=== PATIENT | female | born 1995 | race Hispanic/Latino ===

== ENCOUNTER 2018-12-02 14:06 | Emergency (ER) | payer OTHER ==
[~2018-12-02] VITALS: Ht 157.5 cm; Wt 63.6 kg
[2018-12-02 17:40] LABS: BASO % 0.2 % (0.0-1.0); EOS # 0.1 10^3/uL (0.0-0.50); EOS % 0.4 % (0.0-3.0); HEMATOCRIT 37.4 % (36.0-47.0); HEMOGLOBIN 12.3 g/dl (12.0-15.5); LYMPH # 1.8 10^3/uL (1.5-6.5); LYMPH % 16.2 % (24.0-44.0); MEAN CORPUSCULAR HEMOGLOBIN 28.5 pg (27.0-33.0); MEAN CORPUSCULAR HGB CONC 32.9 g/dl (32.0-36.5); MEAN CORPUSCULAR VOLUME 86.8 fl (80.0-96.0); MONO # 0.5 10^3/uL (0.0-0.8); NEUTROPHILS # 8.8 10^3/uL (1.8-7.7); NEUTROPHILS % 78.8 % (36.0-66.0); PLATELET COUNT, AUTOMATED 197 10^3/uL (150-450); RED BLOOD COUNT 4.31 10^6/uL (4.00-5.40); WHITE BLOOD COUNT 11.2 10^3/uL (4.0-10.0)
[2018-12-02 18:07] LABS: ALBUMIN 3.4 GM/DL (3.2-5.2); ALT/SGPT 17 U/L (12-78); BILIRUBIN,DIRECT < 0.1 MG/DL (0.0-0.2); BILIRUBIN,TOTAL 0.2 MG/DL (0.2-1.0); BLOOD UREA NITROGEN 7 MG/DL (7-18); CALCIUM LEVEL 8.5 MG/DL (8.5-10.1); CARBON DIOXIDE LEVEL 24 MEQ/L (21-32); CHLORIDE LEVEL 104 MEQ/L (98-107); CREATININE FOR GFR 0.45 MG/DL (0.55-1.30); GLOMERULAR FILTRATION RATE > 60.0 (>60); GLUCOSE, FASTING 102 MG/DL (70-100); POTASSIUM SERUM 5.1 MEQ/L (3.5-5.1); SODIUM LEVEL 135 MEQ/L (136-145); TOTAL PROTEIN 7.3 GM/DL (6.4-8.2)
[2018-12-02 18:34] VITALS: BP 112/58
--- NOTE | 2018-12-02 20:43 | REP ---
FIRST TRIMESTER ULTRASOUND: Real-time sonographic evaluation of the gravid uterus is performed. There is a single living intrauterine gestation with estimated gestational age of 14 weeks based on today's ultrasound measurements, EDC 06/02/2019. heart rate is 150 beats per minute. [place]-rump length is 82 mm. BPD 25 mm. Abdominal circumference is 73 mm. There is no subchronic hemorrhage. Placenta is posterior with no previa. No maternal adnexal region abnormalities are seen. Electronically Signed by Kadeem Sigala MD 12/04/2018 01:28 P
== END 2018-12-02 18:38 | disposition home or self-care (01) ==
LOC: M ED 14:06
DX: O26.892 Other specified pregnancy related conditions, second trimester (principal); R10.30 Lower abdominal pain, unspecified; Z3A.14 14 weeks gestation of pregnancy

== ENCOUNTER 2019-06-09 04:17 | Inpatient (IN) | payer OTHER ==
[~2019-06-09] VITALS: Ht 157.5 cm; Wt 73.4 kg
[2019-06-09] VITALS (42 sets, daily range): BP systolic 101–191; BP diastolic 58–95
[2019-06-09] MEDS ORDERED: LACTATED RINGER'S 1000 ML IV STA (04:54)
[2019-06-09] MEDS: LR 1,000 ML IV SCH ×3 (04:54→19:44)
[2019-06-09] MEDS: miSOPROStol 50 MCG 1/2 TAB (S0191) PO SCH ×2 (05:00→09:18)
[2019-06-09 06:10] LABS: HEMATOCRIT 35.9 % (36.0-47.0); HEMOGLOBIN 11.4 g/dl (12.0-15.5); MEAN CORPUSCULAR HEMOGLOBIN 27.3 pg (27.0-33.0); MEAN CORPUSCULAR HGB CONC 31.8 g/dl (32.0-36.5); MEAN CORPUSCULAR VOLUME 85.9 fl (80.0-96.0); PLATELET COUNT, AUTOMATED 173 10^3/uL (150-450); RED BLOOD COUNT 4.18 10^6/uL (4.00-5.40)
[2019-06-09] MEDS ORDERED: FENTANYL 2MCG/ML ROPIVACAINE 0.2% IN 0.9% NACL 100ML IVBAG As Ordered ONE (13:55)
[2019-06-09] MEDS ORDERED: diphenhydrAMINE INJ 50MG/ML VIAL (J1200) IV PRN (14:45)
[2019-06-09] MEDS ORDERED: NALOXONE INJ 0.4 MG/1 ML VIAL (J2310) IV PRN (14:45)
[2019-06-09] MEDS ORDERED: FENTANYL/ROPIVACAINE/NACL BAG 100 ML EPIDURAL SCH (14:45)
[2019-06-09] MEDS ORDERED: LACTATED RINGER'S 1000 ML IV PRN (14:45)
[2019-06-09] MEDS ORDERED: EPIDURAL/PCA KEYS XX PRN (14:45)
[2019-06-09] MEDS ORDERED: EPIDURAL COMMENT XX SCH (14:45)
[2019-06-09] MEDS ORDERED: ONDANSETRON 4MG/2ML VIAL (J2405) IV PRN (14:45)
[2019-06-09] MEDS ORDERED: ePHEDrine SULFATE 25 MG/5 ML(5MG/ML) SYRINGE IV PRN (14:45)
[2019-06-09] MEDS ORDERED: REFRIGERATOR IV KEYS XX PRN (14:45)
--- NOTE | 2019-06-09 20:44 | HPE ---
DATE OF ADMISSION: 06/09/2019 Nohemi is a 23-year-old female 2, para 0-0-1-0 with an estimated date of confinement (EDC) of 06/02/2019, estimated gestational age (EGA) 41 weeks gestation who presented to labor and delivery with complaint of gross rupture of membrane and contraction. Upon evaluation in labor and delivery, she was found to be grossly ruptured with irregular contractions. At this point, a decision was made for admission. Her record reviewed and essentially unremarkable. LABORATORY DATA: Blood type is A+, rubella immune, hepatitis negative, HIV negative, GC and chlamydia negative, one-hour sugar testing was within normal limits. Her GBS is negative. PAST MEDICAL HISTORY: Denies. PAST SURGICAL HISTORY: Denies. SOCIAL HISTORY: Denies any alcohol, drug or cigarette smoking. REVIEW OF SYSTEMS: Unremarkable. MEDICATIONS: vitamin. ALLERGIES: No known drug allergies. PHYSICAL EXAMINATION ON ADMISSION: HEENT: Within normal limits. ABDOMEN: Soft, nontender, nondistended. EXTREMITIES: No clubbing, cyanosis or edema. VAGINAL EXAMINATION: Gross rupture of membranes, cervix is fingertip to 1 cm, 60% effaced, fetus at -2 station in a vertex position. Tracing reviewed, category 1 tracing with irregular contractions. ASSESSMENT: Intrauterine at 41 weeks gestation with gross rupture of membranes in early labor. PLAN: Admit to labor and delivery. Routine laboratories sent. Pain management discussed. The patient opted for an epidural. Induction process discussed with the patient given that she is grossly ruptured. Decision made to proceed with Cytotec induction.
[2019-06-09] MEDS ORDERED: OXYTOCIN DRIP 30 UNITS in APPROPRIATE DILUENT 1 EA IV SCH (21:39)
[2019-06-09 21:45] LABS: CORD GAS ABE A -3.3; CORD GAS HCO3 A 23.6 MEQ/L; CORD GAS O2 SAT A 36.5 %; CORD GAS PCO2 A 49.6 mmHg; CORD GAS PH A 7.295 UNITS; CORD GAS PO2 A 18.3 mmHg; CORD GAS SBC A 20.4 MEQ/L; CORD GAS TCO2 A 25.1 MEQ/L
[2019-06-09] MEDS ORDERED: RHOGAM 300 MCG (1500 IU) INJ (J2790) IM SCH (21:45)
[2019-06-09] MEDS ORDERED: ANUSOL HC CREAM 30GM TOP PRN (21:45)
[2019-06-09] MEDS ORDERED: MEASLES,MUMPS,RUBELLA VACCINE INJ (MMR-II) (90707) SC SCH (21:45)
[2019-06-09] MEDS ORDERED: ACETAMINOPHEN TAB 650MG DOSE (2X325MG) PO PRN (21:45)
[2019-06-09] MEDS ORDERED: IBUPROFEN 600 MG TAB PO PRN (21:45)
[2019-06-09] MEDS ORDERED: ACETAMINOPHEN 500 MG TAB PO PRN (21:45)
[2019-06-09] MEDS ORDERED: DIBUCAINE 1% OINTMENT 30GM TOP PRN (21:45)
[2019-06-09] MEDS ORDERED: METHYLERGONOVINE MALEATE 0.2 MG TAB PO PRN (21:45)
[2019-06-09 21:46] LABS: CORD GAS ABE V -4.6; CORD GAS O2 SAT V 47.4 %; CORD GAS PCO2 V 35.8 mmHg; CORD GAS PH V 7.365 UNITS; CORD GAS PO2 V 19.7 mmHg; CORD GAS SBC V 19.6 MEQ/L; CORD GAS TCO2 V 21.1 MEQ/L
[2019-06-09] MEDS ORDERED: SLF 3 ML SYR IV PRN (22:30)
[2019-06-09] MEDS: IBUPROFEN 800 MG TAB PO PRN (23:56)
[2019-06-10] MEDS: SLF 3 ML SYR IV SCH ×2 (06:16→14:21)
[2019-06-10 06:29] VITALS: BP 110/56
[2019-06-10] MEDS: DOCUSATE SODIUM 100 MG CAP PO SCH ×2 (07:20→21:43)
[2019-06-10] MEDS: PRENATAL VITAMINS CHEWABLE TABLET PO SCH (07:20)
--- NOTE | 2019-06-10 09:04 | IPN ---
DATE: 06/09/2019 at 1600. This lady was having some occasional late decelerations with good recovery and moderate variability. She was found to be -8 cm with a spontaneous contractions. Did have some molding. Vertex occiput posterior (OP) position, -2 to 3 station. Not well applied to the cervix at the present time, 100% effaced. IV bolus, repositioning and repositioning of the monitor, the contractions remained the same and the category 1 strip returned.
--- NOTE | 2019-06-10 09:07 | IPN ---
DATE: 06/09/2019 at 10:06 a.m. This lady was admitted with spontaneous rupture of membranes and contractions moderate intensity. Initially, she was found to be 1 cm, posterior, 60% effaced, -3 station. Our plan of management is that she has had Cytotec times two. We are awaiting the 4-hour window when Cytotec issue has resolved. We will reevaluate her in 4 hours time after which possibility of Pitocin may be required. Presently, she has a category one strip. She is normotensive with no adverse reasons for not continuing. The patient understands the plan of care.
--- NOTE | 2019-06-10 09:10 | IPN ---
DATE: 06/09/2019 at 0800 hours This lady is at 41 weeks of gestation and was admitted at 1 cm with ruptured membranes, meconium stained liquid, having moderate contractions 5-7 minutes apart. Overnight, she really did not do much. We anticipate giving her breakfast, reevaluating and reassessment. The patient is booked for another Cytotec at 0900 hours after reevaluation. Category one strip.
[2019-06-10] MEDS: IBUPROFEN 800 MG TAB PO PRN (15:29)
--- NOTE | 2019-06-10 17:33 | DN ---
DATE: 06/09/2019 Nohemi is a 24-year-old female who was admitted at 40 weeks gestation in labor. She progressed to fully dilated, delivered a live male in right occiput anterior position. scores 9 and 9. weight 7 pounds, 13 ounces. Placenta delivered spontaneously intact, three-vessel cord. Perineum, vagina and cervix inspected. No laceration noted. Estimated blood loss 250 mL. Both mother and baby in stable condition.
[2019-06-10 18:00] VITALS: BP 118/62
[2019-06-11] MEDS: IBUPROFEN 800 MG TAB PO PRN (00:59)
[2019-06-11 06:14] VITALS: BP 103/54
[2019-06-11] MEDS: PRENATAL VITAMINS CHEWABLE TABLET PO SCH (08:38)
[2019-06-11] MEDS: DOCUSATE SODIUM 100 MG CAP PO SCH (08:38)
[2019-06-11] MEDS ORDERED: IBUP80TA PO (10:00)
[2019-06-11] MEDS ORDERED: COLA100C5 PO (10:00)
[2019-06-11] MEDS ORDERED: DIBU10OI TOP (10:00)
[2019-06-11] MEDS ORDERED: PROC1CRE5 TOP (10:00)
[2019-06-11] MEDS ORDERED: ACET-683 PO (10:00)
--- NOTE | 2019-06-12 17:51 | DSES ---
DATE OF ADMISSION: 06/09/2019 DATE OF DISCHARGE: 06/11/2019 A 24-year 2, now para 1 admitted at 41 weeks with contractions and spontaneous rupture of membranes, had a live male , 7 pounds, 12 ounces, scores of 9 and at one and five minutes respectively. Arterial pH 7.29, base excess -3.3, venous pH 7.36, base excess -4.6. On discharge, we discussed phlebitis, cystitis, mastitis, endometritis and cellulitis, diet, exercise, pain management, perineal, breast and wound care. Her admitting hemoglobin was 11.4, hematocrit 35.9 and platelets were 173. Her vital signs on discharge: Blood pressure 103/54, respirations 16, pulse 56, temperature is 97.6. We discussed phlebitis, cystitis, mastitis, endometritis and cellulitis, diet, exercise, pain management, perineal, breast and wound care. The rest of the examination unremarkable. Normocephalic, atraumatic. Neck: Full range of motion. Pupils equal and reactive to light. Distal pulses are symmetric. No evidence of deep vein thrombosis (DVT), pulmonary embolism (PE) or superficial phlebitis. Chest is clear bilaterally to bases. No wheezes or rhonchi. No costovertebral angle (CVA) tenderness. Abdomen is soft, uterus two below. Lochia is moderate. Four quadrant bowel sounds are noted. Perineum is intact. No rashes, lesions or pruritus. No arthralgia or myalgia. No complaint joint pain. No complaint cough, wheeze, shortness of breath, or dyspnea on exertion. Neurologically complete. No nausea, vomiting, diarrhea or constipation. In summary, we have a term gestation, delivered a live male , discharged. Followup in the office in six weeks' time. Medications were dispensed.
--- NOTE | 2019-06-12 20:16 | IPN ---
DATE: 06/12/2019 This patient requested circumcision of her male . After discussing the risks and benefits of the circumcision, the medical and nonmedical indications, the penile block and aftercare, She expressed understanding of the penile block, aftercare and bleeding, signed the consent form. We await the clearance by the sales development coordinator.
== END 2019-06-11 10:50 | disposition home or self-care (01) | DRG 807 ==
LOC: M LDI 04:17 → M OBS 23:30
PROVIDERS: ADMIT Obstetrics & Gynecology; ATTEND Obstetrics & Gynecology
PROC: 10E0XZZ Delivery of Products of Conception, External Approach (ICD-10-PCS; principal; 2019-06-09)
DX: O48.0 Post-term pregnancy (principal); Z37.0 Single live birth; Z3A.41 41 weeks gestation of pregnancy; O77.0 Labor and delivery complicated by meconium in amniotic fluid